=== PATIENT | female | born 1960 | race African-American/Black ===

== ENCOUNTER 2020-06-24 06:34 | Day surgery (SDC) | payer OTHER ==
[2020-06-18 10:20] VITALS: BMI 41.1
[2020-06-24] MEDS ORDERED: BUPIVACAINE HCL/PF 0.25% (2.5MG/ML) 10 ML VIAL ONE (07:05)
[2020-06-24] MEDS ORDERED: LIDOCAINE HCL 2% (20ML MULTI-DOSE VIAL) ONE (07:06)
[2020-06-24] MEDS ORDERED: MIDAZOLAM HCL 2 MG/2 ML SINGLE DOSE VIAL ONE (07:51)
[2020-06-24] MEDS ORDERED: PROPOFOL 20 ML ONE (08:04)
[2020-06-24 09:19] VITALS: BP 128/81; PULSE 74; TEMP 98
== END 2020-06-24 09:20 | disposition home or self-care (01) ==
LOC: FASU 06:34
PROVIDERS: ATTEND Orthopaedic Surgery Hand Surgery
PROC: 01N50ZZ Release Median Nerve, Open Approach (ICD-10-PCS; principal; 2020-06-24 08:23)
DX: G56.02 Carpal tunnel syndrome, left upper limb (principal); Z88.1 Allergy status to other antibiotic agents; Z88.8 Allergy status to other drugs, medicaments and biological substances
CPT/HCPCS: 82962